=== PATIENT | male | born 1975 | race Caucasian/White ===

== ENCOUNTER 2019-12-25 11:23 | Emergency (ER) | payer MEDICAID, SELFPAY ==
[2019-12-25 12:12] VITALS: BP 95/58; PULSE 102; RESP 18; TEMP 37.4; O2SAT 98; BMI 23.7
--- NOTE | 2019-12-25 12:54 | ED_ITS ---
HPI - Skin/Abscess/Foreign Bdy General Chief complaint: Skin/Abscess/Foreign Body Stated complaint: rash Time Seen by Provider: 12/25/19 11:36 Source: patient Mode of arrival: ambulatory Limitations: no limitations History of Present Illness HPI narrative: 44yoM presenting to the ED c c/o of a red rash all over his body that is itchy that started at 10pm lastnight after he took out his ear stretcher earring/gauges and placing topical A&D due to he noticed purulent discharge from his ear holes. Reports that he felt warm yesterday but did not take his temperature and took an extra strength tylenol that he has never taken before. 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 Related Data Allergies Allergy/AdvReac Type Severity Reaction Status Date / Time No Known Allergies Allergy Verified 12/25/19 12:10 Review of Systems Review of Systems: Constitutional : No Fever, No Chills , no body aches, no recent illness Head/Face: No facial swelling, No facial redness ENT/Mouth : No oral/throat swelling, No Hoarseness, No Swallowing Difficulty Eyes: No Eye Pain, No Swelling, No Redness Cardiovascular : No Chest Pain, No SOB, No palpitations Respiratory : No Cough, No Sputum, No Wheezing, No Smoke Exposure, No Dyspnea Gastrointestinal : No Nausea, No Vomiting, No Diarrhea, No abdominal Pain Genitourinary : No Dysuria, No Urinary Frequency, No Hematuria Musculoskeletal : No joint pain, No Myalgias, No Joint Swelling Skin : No Skin Lesions, positive rash Neuro : No Weakness, No Numbness, No Headache, No dizziness, No tingling Psych : No Anxiety/Panic, No Depression Heme/Lymph: No Bruising, No Lymphadenopathy Endocrine : No Polyuria, No Polydipsia Denies changes in lotions or detergents. Denies drainage from rash. Denies any recent sick contacts or recent travel. [facility] Past Medical History Attestation statement: The following information was validated with the patient. Social History Social History Advance Directives: No Advance Directives Information Provided: No Physical Exam Vital Signs: Vital Signs: Vital Signs Temp Pulse Resp BP Pulse Ox 12/25/19 12:12 99.3 F 102 H 18 95/58 L 98 Body Mass Index 23.7 vital signs have been reviewed as normal and appeared to be correct. Blood pressure normal. Heart rate normal. Respiration rate normal. Temperature normal. Oxygen saturation normal. Appearance: Alert. Oriented X3. No acute distress. Head: Normal external exam. Normocephalic. Atraumatic. No Dunlap signs noted. No raccoon eyes noted Eyes: PERRLA. EOMI. Conjunctiva and sclera normal. Eyelids normal. ENT: External ear with mild soft tissue swelling where the patient's earrings were with dried purulent/bloody discharge. EAC normal. TM's Normal. Pharynx normal. Uvula midline. Moist mucous membranes. No trismus noted. No drooling noted. No muffled voice noted. Neck: Normal inspection. Neck supple. FROM. No adenopathy. Thyroid Normal. No meningeal signs. No neck mass noted. CVS: Normal heart rate and rhythm. Heart sound normal. No murmurs noted. Pulses normal throughout. Respiratory: No respiratory distress. Painless inspiration. Breath sounds normal. No wheezes/rales/rhonchi noted. Chest nontender. No accessory muscle usage noted or decreased air movement noted. Abdomen: Soft and nontender. Bowel sounds normal in all 4 quadrants. No distention noted. No organomegaly noted. No visible injury noted. Back: No CVA tenderness. Full range of motion noted. Skin: Skin warm and dry. Normal skin color. Normal skin turgor. No lesions/lacerations noted. Macular pruritic erythematous rash scattered throughout the entire body. Extremities: No lower extremity edema. Extremities exhibit normal range of motion. Extremities nontender. Neuro: Oriented X 3. No motor deficit. No sensory deficit. Reflexes normal. Course Course Course Narrative: Patient most likely drug reaction to possibly the extra- strength Tylenol that he has never taken before ordered a and D that he applied to his ears. will start the patient on steroids Benadryl and Pepcid and a topical hydrocortisone. Instructed patient to wait 2 days and start antibiotics for cellulitis to ear lobes. 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 Patient understands agrees with this plan.
[2019-12-25] MEDS: predniSONE 20 MG TABLET 60 MG PO (13:05)
[2019-12-25] MEDS: diphenhydrAMINE HCL 25 MG TABLET PO (13:06)
[2019-12-25] MEDS: Famotidine 20 MG TABLET PO (13:06)
== END 2019-12-25 13:13 | disposition home or self-care (01) ==
PROVIDERS: Emergency Provider Emergency Medicine
DX: H60.10 Cellulitis of external ear, unspecified ear (principal); L27.0 Generalized skin eruption due to drugs and medicaments taken internally; T39.1X5A Adverse effect of 4-Aminophenol derivatives, initial encounter; Y92.009 Unspecified place in unspecified non-institutional (private) residence as the place of occurrence of the external cause
CPT/HCPCS: 99283; Q0163

== ENCOUNTER 2020-03-27 13:17 | Outpatient (REF) | payer MEDICAID, SELFPAY | END 2020-03-27 13:18 | disposition home or self-care (01) | LOC: HO.LAB 13:17 | PROVIDERS: Visit Provider Internal Medicine | DX: Z20.822 Contact with and (suspected) exposure to COVID-19 (principal) | CPT/HCPCS: 36415; C9803; U0003 ==

== ENCOUNTER 2020-11-29 16:13 | Emergency (ER) | payer MEDICAID, SELFPAY ==
[2020-11-29 16:43] VITALS: BP 114/74; PULSE 82; RESP 18; TEMP 36.8; O2SAT 97; BMI 23.7
[2020-11-29 17:16] LABS: COVID-19 Test Negative (Negative); IDNOW Serial# 9DD0AD1C
--- NOTE | 2020-11-29 19:16 | ED.URI ---
HPI - URI/Sore Throat General Chief Complaint: Upper Respiratory Symptoms Stated Complaint: Runny nose/Cough Time Seen by Provider: 11/29/20 19:16 Source: patient Mode of arrival: ambulatory Limitations: no limitations History of Present Illness HPI Narrative: Patient post COVID-19 vaccinated comes here for dry cough nasal congestion for last 2 days his coworkers and roommate positive with COVID. No shortness of breath no fever Related Data Previous Rx's Medication Instructions Recorded cephalexin 500 mg capsule (Keflex) 500 mg PO Q6H 10 Days #40 cap 12/24/20 diphenhydramine HCl 25 mg capsule 50 mg PO Q6H PRN 5 Days #30 cap 20 (Benadryl) doxycycline monohydrate 100 mg 100 mg PO BID 10 Days #20 cap 20 capsule famotidine 20 mg tablet (Pepcid) 20 mg PO BID #30 tab 12/25/19 prednisone 20 mg tablet 40 mg PO DAILY 5 Days #10 tab 12/25/19 Allergies Allergy/AdvReac Type Severity Reaction Status Date / Time No Known Allergies Allergy Verified 11/29/20 16:43 Review of Systems Review of Systems: Yes all other systems are reviewed and are negative PMF Past Medical History Medical History No active medical problems Social History Social History Advance Directives: No Advance Directives Information Provided: No Physical Exam Vital Signs: Vital Signs: Last Vital Signs Temp 98.3 F 11/29/20 16:43 Pulse 82 11/29/20 16:43 Resp 18 11/29/20 16:43 BP 114/74 11/29/20 16:43 Pulse Ox 97 11/29/20 16:43 Body Mass Index 23.7 Appearance: Alert. Oriented X3. No acute distress. ENT: Pharynx normal. Oral Mucosa moist Neck: Normal inspection. Neck supple. CVS: Normal heart rate and rhythm. Pulses normal. Respiratory: No respiratory distress. Equal air entry bilateral, no wheezing/rales/rhonchi Neuro: Oriented X 3. MDM - URI/Sore Throat Lab Data Attestation: I reviewed the patient's lab results. Labs: Lab Results 11/29/20 Range/Units 16:48 COVID-19 ([facility]) Negative (Negative) COVID-19 Clin Com See Note Discharge Plan Discharge Clinical Impression: Upper respiratory infection Qualifiers: URI type: unspecified viral URI Qualified Code(s): J06.9 - Acute upper respiratory infection, unspecified Patient Disposition: Home, Self-Care Instructions: Upper Respiratory Infection (ED) Additional Instructions: your covid test is negative if symptoms continue you need to be retested drink plenty of fluids Prescriptions: No Action doxycycline monohydrate 100 mg capsule 100 mg PO BID 10 Days Qty: 20 RF: 0 cephalexin [Keflex] 500 mg capsule 500 mg PO Q6H 10 Days Qty: 40 RF: 0 prednisone 20 mg tablet 40 mg PO DAILY 5 Days Qty: 10 RF: 0 diphenhydramine HCl [Benadryl] 25 mg capsule 50 mg PO Q6H PRN (Reason: allergic reaction) 5 Days Qty: 30 RF: 0 famotidine [Pepcid] 20 mg tablet 20 mg PO BID Qty: 30 RF: 0 Interventions: ED Discharge Assessment Last Done: 11/29/20 19:37 Discharge Date/Time: 11/29/20 19:40
== END 2020-11-29 19:40 | disposition home or self-care (01) ==
PROVIDERS: Emergency Provider Internal Medicine
DX: J06.9 Acute upper respiratory infection, unspecified (principal); R09.89 Other specified symptoms and signs involving the circulatory and respiratory systems; Z20.822 Contact with and (suspected) exposure to COVID-19; Z79.899 Other long term (current) drug therapy
CPT/HCPCS: 36415; 87635; 99283